=== PATIENT | male | born 1970 | race Caucasian/White ===

== ENCOUNTER 2025-06-27 12:38 | Emergency (ER) | payer OTHER, SELFPAY ==
[2025-06-27 12:40] VITALS: BP 184/103; PULSE 108; RESP 18; TEMP 36.6; O2SAT 91; BMI 47.8
[2025-06-27 12:44] VITALS: O2SAT 90
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
[2025-06-27 13:21] LABS: Hematocrit 47.7 % (40-54); Hemoglobin 15.3 g/dL (13.0-16.5); Immature Granulocytes Count 0.200 X10^3/uL (0.0-0.0); Mean Corp Hgb Conc 32.1 g/dL (32-36); Mean Corpuscular Volume 91.2 fL (80-94); Mean Platelet Vol. 10.3 fl (6.2-12.0); NRBC Flagged by Analyzer 0 % (0-5); Platelet Count 323 K/mm3 (150-450); RBC Distribution Width CV 14.7 % (11.6-14.6); RBC Distribution Width SD 49.4 fl (35.1-43.9); Red Blood Count 5.23 M/mm3 (4.6-6.2); White Blood Count 26.4 K/mm3 (4.4-11.0)
[2025-06-27] MEDS: fentaNYL 100 MCG/2 ML Ampul 50 MCG IV (13:26)
[2025-06-27 13:29] LABS: Prothrombin Time (Protime)PT. 12.9 SECONDS (11.7-14.9)
[2025-06-27 13:30] LABS: Partial Thromboplast Time 28.3 Seconds (24.1-36.2)
[2025-06-27 13:37] LABS: AST(SGOT) 24 U/L (<=37); Alanine Aminotransfer ALT/SGPT 18 U/L (<=46); Albumin, Serum 3.7 g/dL (3.5-5.0); Alcohol, Blood (Medical)-Serum < 10.1 mg/dL (<=10.0); Alkaline Phosphatase 97 U/L (40-129); Anion Gap 13 (5-15); BUN 16 mg/dL (4-19); BUN/Creat Ratio 19.4 RATIO (10-20); Bilirubin, Direct 0.17 mg/dL (0.00-0.30); Calcium,Total 8.8 mg/dL (7.6-11.0); Carbon Dioxide 21.1 mmol/L (21.0-32.0); Chloride 107 mmol/L (98-108); Estimated Creatinine Clearance 163.56 ml/min (50-250); Globulin 2.9 g/dL (2.2-4.2); Glucose 140 mg/dL (70-99); Potassium 3.6 mmol/L (3.3-5.1)
[2025-06-27 13:39] VITALS: BP 186/91; PULSE 121; RESP 16; O2SAT 97
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
[2025-06-27 14:00] VITALS: BP 186/91; PULSE 121; RESP 19; O2SAT 96
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
[2025-06-27] MEDS: 0.9% Normal Saline (1000mL) 1,000 ML 999 ML IV (14:38)
[2025-06-27 15:00] VITALS: BP 154/80; PULSE 122; RESP 15; O2SAT 98
[2025-06-27 15:02] VITALS: BP 154/80; PULSE 122; RESP 15; TEMP 36.8; O2SAT 98
== END 2025-06-27 15:23 | disposition short-term general hospital (02) ==
PROVIDERS: Emergency Provider Emergency Medicine; Visit Provider Emergency Medicine
DX: S82.892A Other fracture of left lower leg, initial encounter for closed fracture (principal); I10 Essential (primary) hypertension; Y92.410 Unspecified street and highway as the place of occurrence of the external cause; V89.2XXA Person injured in unspecified motor-vehicle accident, traffic, initial encounter; E66.9 Obesity, unspecified; Z85.72 Personal history of non-Hodgkin lymphomas; F17.210 Nicotine dependence, cigarettes, uncomplicated; S20.20XA Contusion of thorax, unspecified, initial encounter
CPT/HCPCS: 70450; 71260; 72125; 73610; 74177; 80048; 80076; 82077; 85025; 85610; 85730; 93005; 96361; 96374; 96375; 96376; 99285; Q9967; J2405